=== PATIENT | male | born 1950 | race Caucasian/White ===

== ENCOUNTER 2022-04-14 07:54 | Outpatient (CLI) | payer SELFPAY | END 2022-04-14 07:55 | disposition home or self-care (01) | LOC: WOUND 08:01 | PROVIDERS: Visit Provider Nurse Practitioner Family | DX: E11.622 Type 2 diabetes mellitus with other skin ulcer (principal); L97.825 Non-pressure chronic ulcer of other part of left lower leg with muscle involvement without evidence of necrosis; I73.9 Peripheral vascular disease, unspecified; Z79.84 Long term (current) use of oral hypoglycemic drugs | CPT/HCPCS: 11043; 99214 ==

== ENCOUNTER 2022-04-21 13:25 | Outpatient (CLI) | payer SELFPAY ==
--- NOTE | 2022-04-21 15:00 | CRLHL7_ITS ---
For Patients: As a result of the Century Cures Act, medical imaging exams and procedure reports are released immediately into your electronic medical record. You may view this report before your referring provider. If you have questions, please contact your health care provider. 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 Findings: In the left lower extremity there are biphasic waveforms within the common femoral artery, profunda femoral artery, superficial femoral artery, and popliteal artery. Monophasic waveforms are present within the peroneal, posterior tibial, anterior tibial and dorsalis pedis arteries. Diffuse atherosclerotic disease noted. No elevated peak systolic velocity. Impression: Extensive atherosclerotic disease with monophasic waveforms distal to the popliteal artery without high-grade internal stenosis. Dictated by Maico Lee MD @ 04/24/2022 2:57:57 PM (Electronically Signed)
== END 2022-04-21 13:26 | disposition home or self-care (01) ==
PROVIDERS: Visit Provider Nurse Practitioner Family
DX: E11.622 Type 2 diabetes mellitus with other skin ulcer (principal); L97.825 Non-pressure chronic ulcer of other part of left lower leg with muscle involvement without evidence of necrosis; I73.9 Peripheral vascular disease, unspecified; Z72.0 Tobacco use; Z79.84 Long term (current) use of oral hypoglycemic drugs
CPT/HCPCS: 11043; 93926

== ENCOUNTER 2022-05-19 13:21 | Outpatient (CLI) | payer SELFPAY | END 2022-05-19 13:22 | disposition home or self-care (01) | PROVIDERS: Visit Provider Nurse Practitioner Family | DX: E11.622 Type 2 diabetes mellitus with other skin ulcer (principal); L97.825 Non-pressure chronic ulcer of other part of left lower leg with muscle involvement without evidence of necrosis; Z72.0 Tobacco use; Z79.84 Long term (current) use of oral hypoglycemic drugs | CPT/HCPCS: 11042 ==

== ENCOUNTER 2022-06-16 13:05 | Outpatient (CLI) | payer SELFPAY | END 2022-06-16 13:06 | disposition home or self-care (01) | PROVIDERS: Visit Provider Nurse Practitioner Family | DX: E11.622 Type 2 diabetes mellitus with other skin ulcer (principal); L97.828 Non-pressure chronic ulcer of other part of left lower leg with other specified severity; I73.9 Peripheral vascular disease, unspecified; Z72.0 Tobacco use; Z79.84 Long term (current) use of oral hypoglycemic drugs | CPT/HCPCS: 11042 ==